=== PATIENT | male | born 1945 | race Hispanic/Latino ===

== ENCOUNTER 2021-07-27 11:50 | Inpatient (IN) | payer MEDICARE, BC ==
[~2021-07-27] VITALS: Ht 167.6 cm; Wt 99.9 kg
[2021-07-27] VITALS (11 sets, daily range): BP systolic 130–158; BP diastolic 69–84
[2021-07-27] MEDS ORDERED: DEXAMETHASONE SOD PHOS 10 MG/1 ML VIAL IV ONE (12:00)
[2021-07-27 12:06] LABS: BASOPHILS % 0.3 % (0.0-1.0); EOSINOPHILS # (AUTO) 0.1 (0.0-0.4); EOSINOPHILS % 0.4 % (0.0-6.0); HEMATOCRIT 45.9 % (38.2-49.6); HEMOGLOBIN 15.2 g/dL (14.0-18.0); LYMPHOCYTES % 7.2 % (18.0-39.1); MEAN CORPUSCULAR HEMOGLOBIN 30.7 pg (28-32); MEAN CORPUSCULAR HGB CONC 33.1 g/dL (31-35); MEAN CORPUSCULAR VOLUME 92.7 fL (81-99); MONOCYTES # (AUTO) 0.6 (0.2-0.8); MONOCYTES % 4.1 % (4.4-11.3); NEUTROPHILS # (AUTO) 11.9 (2.1-6.9); NEUTROPHILS % 86.9 % (38.7-80.0); PLATELET COUNT 219 x10e3/uL (140-360); RED BLOOD COUNT 4.95 x10e6/uL (4.3-5.7); RED CELL DISTRIBUTION WIDTH 12.2 % (11.7-14.4)
[2021-07-27 12:21] LABS: ALBUMIN 3.1 g/dL (3.5-5.0); ALBUMIN/GLOBULIN RATIO 0.7 (0.8-2.0); ANION GAP 22.6 mmol/L (8-16); CALCIUM 8.5 mg/dL (8.4-10.2); CREATININE, SERUM 1.15 mg/dL (0.72-1.25); POTASSIUM 3.6 mmol/L (3.5-5.1)
[2021-07-27] MEDS ORDERED: ENOXAPARIN SODIUM INJ 100 MG/ML SYR SC STA (12:39)
[2021-07-27] MEDS ORDERED: ACETAMINOPHEN 325 MG TAB PO ONE (12:45)
[2021-07-27] MEDS ORDERED: ACETAMINOPHEN 325 MG TAB ONE (12:46)
[2021-07-27] MEDS ORDERED: ETOMIDATE 2 MG/ML 10 ML INJ IV ONE (13:06)
[2021-07-27] MEDS ORDERED: NALOXONE HCL INJ 0.4 MG/ML AMP ONE (13:06)
[2021-07-27] MEDS ORDERED: VECURONIUM BROMIDE FOR INJ 20 MG VIAL ONE (13:06)
[2021-07-27] MEDS ORDERED: WATER STERILE 10 ML VIAL ONE (13:06)
[2021-07-27] MEDS ORDERED: IBUPROFEN 800MG/ 200ML 200 ML IV ONE (13:20)
[2021-07-27] MEDS ORDERED: OMEPRAZOLE40 MG PO (13:27)
[2021-07-27] MEDS ORDERED: AMLODIPINE BESY10 MG PO (13:27)
[2021-07-27] MEDS ORDERED: METOPROLOL TAR100 MG PO (13:27)
[2021-07-27] MEDS ORDERED: METFORMIN HCL1000 MG PO (13:27)
[2021-07-27] MEDS ORDERED: OLMESARTAN MEDO40 MG PO (13:27)
[2021-07-27] MEDS ORDERED: ATORVASTATIN CA40 MG PO (13:27)
[2021-07-27] MEDS ORDERED: DEXTROSE 50% SYRINGE 50 ML IV PRN (14:45)
[2021-07-27] MEDS: SODIUM CHLORIDE 0.9% 1000ML 1,000 ML IV SCH (15:48)
[2021-07-27] MEDS ORDERED: REMDESIVIR IV ONE (16:00)
[2021-07-27] MEDS ORDERED: SODIUM CHLORIDE 0.9% IV ONE (16:00)
[2021-07-27] MEDS: ASCORBIC ACID 500 MG TAB PO SCH (17:00)
[2021-07-27] MEDS: INSULIN REGULAR, HUMAN 100 UNIT/1 ML SQ SCH ×2 (17:35→21:16)
[2021-07-27] MEDS: CEFTRIAXONE 2 GM in SODIUM CHLORIDE 0.9% 100 ML IV SCH (19:01)
[2021-07-27] MEDS: ENOXAPARIN 30 MG/0.3 ML SYR SC SCH (21:14)
[2021-07-27] MEDS ORDERED: SODIUM CHLORIDE 0.9% 1000ML 500 ML IV SCH ×2 (23:00→23:05)
[2021-07-27] MEDS ORDERED: SODIUM CHLORIDE 0.9% 1000ML 500 ML IV ONE (23:15)
[2021-07-28] VITALS (15 sets, daily range): BP systolic 110–169; BP diastolic 69–87
[2021-07-28 00:15] LABS: ABG HCO3 21 mmol/L (22-26); ABG PCO2 29 mmHg (35-45); ABG PH 7.46 (7.35-7.45); ABG PO2 44 mmHg (80-105); ABG TCO2 22
[2021-07-28] MEDS: ACETAMINOPHEN 325 MG TAB PO PRN ×2 (02:45→07:56)
[2021-07-28] MEDS ORDERED: ACETAMINOPHEN 325 MG TAB ONE (02:46)
[2021-07-28] MEDS: DEXMEDETOMIDINE 400MCG/NS100ML 100 ML IV PRN ×2 (04:45→14:22)
[2021-07-28 05:09] LABS: ABG HCO3 21 mmol/L (22-26); ABG PCO2 28 mmHg (35-45); ABG PH 7.49 (7.35-7.45); ABG PO2 42 mmHg (80-105); ABG TCO2 22
[2021-07-28 05:59] LABS: BASOPHILS % 0.5 % (0.0-1.0); EOSINOPHILS % 0.2 % (0.0-6.0); HEMATOCRIT 42.9 % (38.2-49.6); HEMOGLOBIN 14.7 g/dL (14.0-18.0); LYMPHOCYTES # (AUTO) 0.5 (1.0-3.2); LYMPHOCYTES % 5.3 % (18.0-39.1); MEAN CORPUSCULAR HEMOGLOBIN 30.9 pg (28-32); MEAN CORPUSCULAR HGB CONC 34.3 g/dL (31-35); MEAN CORPUSCULAR VOLUME 90.3 fL (81-99); MONOCYTES # (AUTO) 0.2 (0.2-0.8); MONOCYTES % 2.3 % (4.4-11.3); NEUTROPHILS % 90.5 % (38.7-80.0); PLATELET COUNT 208 x10e3/uL (140-360); RED BLOOD COUNT 4.75 x10e6/uL (4.3-5.7); RED CELL DISTRIBUTION WIDTH 12.1 % (11.7-14.4)
[2021-07-28 06:13] LABS: ALBUMIN 2.4 g/dL (3.5-5.0); ALBUMIN/GLOBULIN RATIO 0.6 (0.8-2.0); ANION GAP 18.3 mmol/L (8-16); CREATININE, SERUM 0.76 mg/dL (0.72-1.25); POTASSIUM 3.3 mmol/L (3.5-5.1)
[2021-07-28] MEDS: INSULIN REGULAR, HUMAN 100 UNIT/1 ML SQ SCH ×4 (07:30→21:20)
[2021-07-28] MEDS: SODIUM CHLORIDE 0.9% 1000ML 1,000 ML IV SCH ×2 (07:56→18:12)
[2021-07-28] MEDS: ASCORBIC ACID 500 MG TAB PO SCH ×2 (09:00→18:10)
[2021-07-28] MEDS: ENOXAPARIN 30 MG/0.3 ML SYR SC SCH (09:00)
[2021-07-28] MEDS: ZINC SULFATE 50 MG CAP PO SCH (09:00)
[2021-07-28] MEDS: DEXAMETHASONE SOD PHOS 10 MG/1 ML VIAL IV SCH (09:00)
[2021-07-28] MEDS ORDERED: METOPROLOL TARTRATE INJ 1 MG/ML VIAL ONE (11:01)
[2021-07-28 11:12] LABS: MAGNESIUM 1.7 MG/DL (1.3-2.1); PHOSPHORUS 1.4 MG/DL (2.3-4.7)
[2021-07-28] MEDS: METOPROLOL TARTRATE 25 MG TAB PO SCH ×2 (11:59→18:10)
[2021-07-28] MEDS ORDERED: METOPROLOL TARTRATE INJ 1 MG/ML VIAL IV ONE (12:00)
[2021-07-28] MEDS: POTASSIUM CHLORIDE 20MEQ/100ML 100 ML IV PRN (12:08)
[2021-07-28 13:08] LABS: ABG PCO2 26 mmHg (35-45); ABG PH 7.46 (7.35-7.45)
[2021-07-28 13:09] LABS: ABG HCO3 19 mmol/L (22-26); ABG PO2 42 mmHg (80-105); ABG TCO2 19
[2021-07-28] MEDS: REMDESIVIR 100MG 100 MG in SODIUM CHLORIDE 0.9% 100 ML IV SCH (14:06)
[2021-07-28] MEDS ORDERED: LORAZEPAM INJ 2 MG/ML VIAL IV PRN (14:30)
[2021-07-28] MEDS ORDERED: LORAZEPAM INJ 2 MG/ML VIAL ONE (14:45)
[2021-07-28] MEDS ORDERED: LORAZEPAM INJ 2 MG/ML VIAL IV ONE (15:00)
[2021-07-28] MEDS: DIGOXIN 0.125 MG TAB PO SCH (15:15)
[2021-07-28] MEDS ORDERED: DIGOXIN INJ 0.25 MG/ML 2 ML AMP IV ONE (15:15)
[2021-07-28] MEDS ORDERED: DILTIAZEM HCL 5 MG/ML 5 ML VIAL IV ONE (15:15)
[2021-07-28] MEDS ORDERED: DEXMEDETOMIDINE 100 ML IV PRN (15:15)
[2021-07-28] MEDS ORDERED: DILTIAZEM HCL 30 MG TAB PO SCH (16:00)
[2021-07-28] MEDS ORDERED: ACETAMINOPHEN 1000 MG/100 ML IV STA (17:04)
[2021-07-28] MEDS: CEFTRIAXONE 2 GM in SODIUM CHLORIDE 0.9% 100 ML IV SCH (18:10)
[2021-07-28] MEDS ORDERED: METOPROLOL TARTRATE INJ 1 MG/ML VIAL IV PRN (19:15)
[2021-07-28] MEDS: CRESTOR 10MG PO SCH (21:00)
[2021-07-28] MEDS: ENOXAPARIN SODIUM INJ 100 MG/ML SYR SC SCH (21:19)
[2021-07-28] MEDS ORDERED: ACETAMINOPHEN 1000 MG/100 ML IV PRN (22:15)
[2021-07-28] MEDS ORDERED: ACETAMINOPHEN 1000 MG/100 ML 100 ML IV ONE (22:30)
[2021-07-28] MEDS ORDERED: DILTIAZEM HCL IV SOLN 125 MG in SODIUM CHLORIDE 0.9% 100 ML IV SCH (22:45)
[2021-07-28] MEDS ORDERED: DILTIAZEM HCL 125 ML IV SCH (22:45)
[2021-07-28] MEDS ORDERED: SODIUM CHLORIDE 0.9% 100 ML ONE (22:46)
[2021-07-28] MEDS ORDERED: DILTIAZEM HCL IV 5MG/ML 25 ML VIAL ONE (22:47)
[2021-07-29] VITALS (25 sets, daily range): BP systolic 70–136; BP diastolic 45–100
[2021-07-29 05:56] LABS: BASOPHILS % 0.3 % (0.0-1.0); HEMOGLOBIN 14.1 g/dL (14.0-18.0); LYMPHOCYTES # (AUTO) 0.7 (1.0-3.2); MEAN CORPUSCULAR HEMOGLOBIN 30.6 pg (28-32); MEAN CORPUSCULAR HGB CONC 33.6 g/dL (31-35); MEAN CORPUSCULAR VOLUME 91.1 fL (81-99); MONOCYTES # (AUTO) 0.4 (0.2-0.8); MONOCYTES % 3.8 % (4.4-11.3); NEUTROPHILS # (AUTO) 8.4 (2.1-6.9); NEUTROPHILS % 86.7 % (38.7-80.0); PLATELET COUNT 230 x10e3/uL (140-360); RED BLOOD COUNT 4.61 x10e6/uL (4.3-5.7); RED CELL DISTRIBUTION WIDTH 12.6 % (11.7-14.4)
[2021-07-29 06:34] LABS: ALBUMIN 1.9 g/dL (3.5-5.0); ALBUMIN/GLOBULIN RATIO 0.5 (0.8-2.0); ANION GAP 13.5 mmol/L (8-16); CALCIUM 8.1 mg/dL (8.4-10.2); CREATININE, SERUM 0.81 mg/dL (0.72-1.25); POTASSIUM 3.5 mmol/L (3.5-5.1)
[2021-07-29] MEDS: DEXAMETHASONE SOD PHOS 10 MG/1 ML VIAL IV SCH (07:56)
[2021-07-29] MEDS: INSULIN REGULAR, HUMAN 100 UNIT/1 ML SQ SCH ×4 (07:56→20:57)
[2021-07-29] MEDS: ENOXAPARIN SODIUM INJ 100 MG/ML SYR SC SCH ×2 (07:56→20:55)
[2021-07-29] MEDS: METOPROLOL TARTRATE 25 MG TAB PO SCH (09:00)
[2021-07-29] MEDS ORDERED: NOREPINEPHRINE 8 MG/D5W 250 ML 250 ML IV PRN (09:45)
[2021-07-29] MEDS: PROPOFOL IV EMULSION 10MG/ML 100 ML IV SCH ×2 (10:40→19:55)
[2021-07-29] MEDS: FENTANYL 2000MCG/NS 250 250 ML IV SCH (10:41)
[2021-07-29] MEDS ORDERED: VASOPRESSIN 60 UNIT in DEXTROSE 5% 50ML 57 ML IV PRN (10:45)
[2021-07-29] MEDS ORDERED: PHENYLEPHRINE HCL IN 0.9% NACL 250 ML IV ONE (10:56)
[2021-07-29 11:48] LABS: ABG HCO3 18 mmol/L (22-26); ABG PCO2 28 mmHg (35-45); ABG PH 7.41 (7.35-7.45); ABG PO2 64 mmHg (80-105); ABG TCO2 19
[2021-07-29] MEDS ORDERED: AMIODARONE 900MG 500 ML IV ONE (12:00)
[2021-07-29] MEDS: DIGOXIN 0.125 MG TAB PO SCH (12:39)
[2021-07-29] MEDS: BARICITINIB 2 MG TABLET PO SCH (12:39)
[2021-07-29] MEDS: ZINC SULFATE 50 MG CAP PO SCH (12:39)
[2021-07-29] MEDS: ASCORBIC ACID 500 MG TAB PO SCH ×2 (12:39→18:05)
[2021-07-29 15:04] LABS: ABG PCO2 37 mmHg (35-45); ABG PH 7.37 (7.35-7.45); ABG PO2 64 mmHg (80-105)
[2021-07-29 15:05] LABS: ABG HCO3 21 mmol/L (22-26); ABG TCO2 22
[2021-07-29] MEDS: REMDESIVIR 100MG 100 MG in SODIUM CHLORIDE 0.9% 100 ML IV SCH (18:04)
[2021-07-29] MEDS: CEFTRIAXONE 2 GM in SODIUM CHLORIDE 0.9% 100 ML IV SCH (18:04)
[2021-07-29] MEDS ORDERED: AMIODARONE 900MG 500 ML IV SCH (18:30)
[2021-07-29] MEDS: CRESTOR 10MG PO SCH (20:55)
[2021-07-30] VITALS (18 sets, daily range): BP systolic 78–136; BP diastolic 57–87
[2021-07-30] MEDS: PROPOFOL IV EMULSION 10MG/ML 100 ML IV SCH ×2 (03:25→12:00)
[2021-07-30] MEDS: MIDAZOLAM HCL 5MG/ML 10ML VIAL 100 ML IV PRN ×3 (03:31→21:45)
[2021-07-30] MEDS: FENTANYL 2000MCG/NS 250 250 ML IV SCH ×2 (05:24→21:30)
[2021-07-30 05:48] LABS: BASOPHILS # (AUTO) 0.1 (0.0-0.1); BASOPHILS % 0.6 % (0.0-1.0); HEMATOCRIT 43.1 % (38.2-49.6); HEMOGLOBIN 14.8 g/dL (14.0-18.0); LYMPHOCYTES # (AUTO) 1.4 (1.0-3.2); LYMPHOCYTES % 9.1 % (18.0-39.1); MEAN CORPUSCULAR HEMOGLOBIN 30.8 pg (28-32); MEAN CORPUSCULAR HGB CONC 34.3 g/dL (31-35); MEAN CORPUSCULAR VOLUME 89.6 fL (81-99); MONOCYTES # (AUTO) 0.7 (0.2-0.8); MONOCYTES % 4.2 % (4.4-11.3); NEUTROPHILS # (AUTO) 12.9 (2.1-6.9); NEUTROPHILS % 81.9 % (38.7-80.0); PLATELET COUNT 296 x10e3/uL (140-360); RED BLOOD COUNT 4.81 x10e6/uL (4.3-5.7); RED CELL DISTRIBUTION WIDTH 12.9 % (11.7-14.4)
[2021-07-30] MEDS: ACETAMINOPHEN 325 MG TAB PO PRN (06:00)
[2021-07-30 06:10] LABS: ALBUMIN 1.7 g/dL (3.5-5.0); ALBUMIN/GLOBULIN RATIO 0.5 (0.8-2.0); ANION GAP 14.4 mmol/L (8-16); CALCIUM 7.1 mg/dL (8.4-10.2); CREATININE, SERUM 0.9 mg/dL (0.72-1.25); POTASSIUM 3.4 mmol/L (3.5-5.1)
[2021-07-30] MEDS: PHENYLEPHRINE 10MG/ML VIAL 40 MG in DEXTROSE 5% 250ML 246 ML IV PRN (06:22)
[2021-07-30] MEDS: POTASSIUM CHLORIDE 20MEQ/100ML 100 ML IV PRN (06:35)
[2021-07-30 07:41] LABS: ABG HCO3 22 mmol/L (22-26); ABG PCO2 33 mmHg (35-45); ABG PH 7.43 (7.35-7.45); ABG PO2 61 mmHg (80-105); ABG TCO2 23
[2021-07-30] MEDS: INSULIN REGULAR, HUMAN 100 UNIT/1 ML SQ SCH ×4 (08:06→21:30)
[2021-07-30] MEDS: DEXAMETHASONE SOD PHOS 10 MG/1 ML VIAL IV SCH (08:44)
[2021-07-30] MEDS: ZINC SULFATE 50 MG CAP PO SCH (08:45)
[2021-07-30] MEDS: BARICITINIB 2 MG TABLET PO SCH (08:45)
[2021-07-30] MEDS: DIGOXIN 0.125 MG TAB PO SCH (08:45)
[2021-07-30] MEDS: ASCORBIC ACID 500 MG TAB PO SCH ×2 (08:45→17:48)
[2021-07-30] MEDS: ENOXAPARIN SODIUM INJ 100 MG/ML SYR SC SCH ×2 (08:45→21:30)
[2021-07-30] MEDS: PIPERACILLIN/TAZOBACTAM 2.25 GM in SODIUM CHLORIDE 0.9% 50ML 50 ML IV SCH ×2 (08:46→17:49)
[2021-07-30 08:54] LABS: LYMPHOCYTES % (MANUAL) 6 % (19-48); MONOCYTES % (MANUAL) 1 % (3.4-9.0); NEUTROPHILS % (MANUAL) 93 % (40-74); PLATELET ESTIMATE ADEQUATE; PLATELET MORPHOLOGY COMMENT FEW LARGE; RBC MORPHOLOGY COMMENT NORMAL
[2021-07-30] MEDS: REMDESIVIR 100MG 100 MG in SODIUM CHLORIDE 0.9% 100 ML IV SCH (15:53)
[2021-07-30] MEDS: CRESTOR 10MG PO SCH (21:00)
[2021-07-31] VITALS (14 sets, daily range): BP systolic 88–117; BP diastolic 53–67
[2021-07-31] MEDS: PIPERACILLIN/TAZOBACTAM 2.25 GM in SODIUM CHLORIDE 0.9% 50ML 50 ML IV SCH ×4 (00:30→17:41)
[2021-07-31] MEDS: MIDAZOLAM HCL 5MG/ML 10ML VIAL 100 ML IV PRN ×4 (02:28→23:00)
[2021-07-31] MEDS: FENTANYL 2000MCG/NS 250 250 ML IV SCH ×3 (03:36→22:00)
[2021-07-31] MEDS: PROPOFOL IV EMULSION 10MG/ML 100 ML IV SCH ×2 (04:00→21:00)
[2021-07-31 06:42] LABS: HEMATOCRIT 43.4 % (38.2-49.6); HEMOGLOBIN 13.9 g/dL (14.0-18.0); LYMPHOCYTES # (AUTO) 1.7 (1.0-3.2); LYMPHOCYTES % 8.3 % (18.0-39.1); MEAN CORPUSCULAR VOLUME 96.9 fL (81-99); MONOCYTES # (AUTO) 0.9 (0.2-0.8); MONOCYTES % 4.3 % (4.4-11.3); NEUTROPHILS # (AUTO) 16.6 (2.1-6.9); NEUTROPHILS % 80.2 % (38.7-80.0); PLATELET COUNT 309 x10e3/uL (140-360); RED BLOOD COUNT 4.48 x10e6/uL (4.3-5.7); RED CELL DISTRIBUTION WIDTH 13.6 % (11.7-14.4)
[2021-07-31 06:54] LABS: ALBUMIN 1.7 g/dL (3.5-5.0); ALBUMIN/GLOBULIN RATIO 0.4 (0.8-2.0); ANION GAP 15.5 mmol/L (8-16); CALCIUM 7.9 mg/dL (8.4-10.2); CREATININE, SERUM 1.07 mg/dL (0.72-1.25); POTASSIUM 4.5 mmol/L (3.5-5.1)
[2021-07-31] MEDS: INSULIN REGULAR, HUMAN 100 UNIT/1 ML SQ SCH (07:32)
[2021-07-31] MEDS: DEXAMETHASONE SOD PHOS 10 MG/1 ML VIAL IV SCH (07:38)
[2021-07-31] MEDS: ZINC SULFATE 50 MG CAP PO SCH (07:54)
[2021-07-31] MEDS: ENOXAPARIN SODIUM INJ 100 MG/ML SYR SC SCH ×2 (07:54→21:03)
[2021-07-31] MEDS: ASCORBIC ACID 500 MG TAB PO SCH ×2 (07:54→17:41)
[2021-07-31] MEDS: BARICITINIB 2 MG TABLET PO SCH (07:54)
[2021-07-31] MEDS ORDERED: DEXTROSE 50% SYRINGE 50 ML IV PRN (10:15)
[2021-07-31] MEDS ORDERED: INSULIN GLARGINE 100 UNITS/ML VIAL SQ NR (10:15)
[2021-07-31 11:21] LABS: ABG HCO3 25 mmol/L (22-26); ABG PCO2 44 mmHg (35-45); ABG PH 7.37 (7.35-7.45); ABG PO2 63 mmHg (80-105); ABG TCO2 26
[2021-07-31] MEDS: INSULIN LISPRO 100 UNIT/1 ML 3ML VIAL SQ SCH ×3 (12:33→21:00)
[2021-07-31] MEDS: REMDESIVIR 100MG 100 MG in SODIUM CHLORIDE 0.9% 100 ML IV SCH (15:38)
[2021-07-31] MEDS ORDERED: INSULIN GLARGINE 100 UNITS/ML VIAL SQ SCH (21:00)
[2021-07-31] MEDS: CRESTOR 10MG PO SCH (21:03)
[2021-08-01] VITALS (24 sets, daily range): BP systolic 86–112; BP diastolic 52–63
[2021-08-01] MEDS: PIPERACILLIN/TAZOBACTAM 2.25 GM in SODIUM CHLORIDE 0.9% 50ML 50 ML IV SCH ×5 (00:30→23:07)
[2021-08-01] MEDS: PROPOFOL IV EMULSION 10MG/ML 100 ML IV SCH ×4 (01:08→21:35)
[2021-08-01] MEDS: MIDAZOLAM HCL 5MG/ML 10ML VIAL 100 ML IV PRN ×4 (04:00→23:47)
[2021-08-01 06:49] LABS: ALBUMIN 1.7 g/dL (3.5-5.0); ALBUMIN/GLOBULIN RATIO 0.4 (0.8-2.0); ANION GAP 14.4 mmol/L (8-16); CALCIUM 7.8 mg/dL (8.4-10.2); CREATININE, SERUM 1.15 mg/dL (0.72-1.25); POTASSIUM 5.4 mmol/L (3.5-5.1)
[2021-08-01] MEDS: BARICITINIB 2 MG TABLET PO SCH (09:16)
[2021-08-01] MEDS: DEXAMETHASONE SOD PHOS 10 MG/1 ML VIAL IV SCH (09:16)
[2021-08-01] MEDS: ENOXAPARIN SODIUM INJ 100 MG/ML SYR SC SCH ×2 (09:16→20:30)
[2021-08-01] MEDS: ZINC SULFATE 50 MG CAP PO SCH (09:16)
[2021-08-01] MEDS: ASCORBIC ACID 500 MG TAB PO SCH ×2 (09:16→16:49)
[2021-08-01] MEDS: INSULIN LISPRO 100 UNIT/1 ML 3ML VIAL SQ SCH ×4 (09:16→20:11)
[2021-08-01] MEDS: FENTANYL 2000MCG/NS 250 250 ML IV SCH (09:17)
[2021-08-01 09:25] LABS: HEMATOCRIT 41.7 % (38.2-49.6); HEMOGLOBIN 13.5 g/dL (14.0-18.0); LYMPHOCYTES # (AUTO) 1.1 (1.0-3.2); LYMPHOCYTES % 5.2 % (18.0-39.1); MEAN CORPUSCULAR HEMOGLOBIN 31.3 pg (28-32); MEAN CORPUSCULAR HGB CONC 32.4 g/dL (31-35); MEAN CORPUSCULAR VOLUME 96.5 fL (81-99); MONOCYTES % 4.8 % (4.4-11.3); NEUTROPHILS # (AUTO) 16.6 (2.1-6.9); NEUTROPHILS % 79.3 % (38.7-80.0); PLATELET COUNT 346 x10e3/uL (140-360); RED BLOOD COUNT 4.32 x10e6/uL (4.3-5.7); RED CELL DISTRIBUTION WIDTH 13.9 % (11.7-14.4)
[2021-08-01] MEDS ORDERED: SOD POLYSTYRENE SULFONATE SUSP 15 GM/60 ML BTL PO PRN (09:45)
[2021-08-01] MEDS ORDERED: INSULIN GLARGINE 100 UNITS/ML VIAL SQ SCH (09:45)
[2021-08-01] MEDS ORDERED: LACTULOSE SYRUP 20 GM/30 ML UDC PO PRN (09:45)
[2021-08-01 11:03] LABS: ABG PCO2 52 mmHg (35-45); ABG PH 7.35 (7.35-7.45)
[2021-08-01 11:04] LABS: ABG HCO3 29 mmol/L (22-26); ABG PO2 105 mmHg (80-105); ABG TCO2 30
[2021-08-01] MEDS: FUROSEMIDE INJ 10 MG/ML 2 ML VIAL IV SCH (13:02)
[2021-08-01 14:20] LABS: CLARITY,URINE CLOUDY (CLEAR); COLOR,URINE YELLOW (YELLOW); KETONES,URINE NEGATIVE (NEGATIVE); LEUKOCYTE ESTERASE ,URINE 1+ (NEGATIVE); NITRITE,URINE NEGATIVE (NEGATIVE); PROTEIN,URINE DIPSTICK NEGATIVE (NEGATIVE); URINE UROBILINOGEN 0.2 mg/dL (0.2 - 1)
[2021-08-01 14:30] LABS: BACTERIA,URINE MANY /HPF; EPITHELIAL CELLS,URINE FEW /LPF; RENAL EPITHELIAL CELLS,URINE FEW; TRANSITIONAL EPI CELLS,URINE FEW; WBC,URINE (MAN) >50 /HPF (0-5)
[2021-08-01 14:37] LABS: CREATININE,URINE RANDOM 28.58 mg/dL (63-166); TOTAL PROTEIN, URINE 8.1 mg/dL (1-14)
[2021-08-01] MEDS: PHENYLEPHRINE 10MG/ML VIAL 40 MG in DEXTROSE 5% 250ML 246 ML IV PRN (15:29)
[2021-08-01 15:52] LABS: ABG HCO3 30 mmol/L (22-26); ABG PCO2 56 mmHg (35-45); ABG PH 7.34 (7.35-7.45); ABG PO2 80 mmHg (80-105); ABG TCO2 31
[2021-08-01] MEDS ORDERED: CALCIUM GLUCONATE 10% INJ 4.65 MEQ in SODIUM CHLORIDE 0.9% 50ML 50 ML IV ONE (17:45)
[2021-08-01] MEDS: INSULIN GLARGINE 100 UNITS/ML VIAL SQ SCH (20:20)
[2021-08-01] MEDS: CRESTOR 10MG PO SCH (20:30)
[2021-08-01] MEDS ORDERED: INSULIN REGULAR IN 0.9 % NACL 100 ML IV ONE (22:11)
[2021-08-02] VITALS (24 sets, daily range): BP systolic 81–132; BP diastolic 50–80
[2021-08-02] MEDS: PROPOFOL IV EMULSION 10MG/ML 100 ML IV SCH ×4 (01:40→22:51)
[2021-08-02] MEDS: FENTANYL 2000MCG/NS 250 250 ML IV SCH ×2 (02:57→19:07)
[2021-08-02] MEDS: MIDAZOLAM HCL 5MG/ML 10ML VIAL 100 ML IV PRN ×3 (04:56→19:08)
[2021-08-02] MEDS: PIPERACILLIN/TAZOBACTAM 2.25 GM in SODIUM CHLORIDE 0.9% 50ML 50 ML IV SCH ×3 (05:15→18:52)
[2021-08-02 05:37] LABS: BASOPHILS # (AUTO) 0.1 (0.0-0.1); BASOPHILS % 0.6 % (0.0-1.0); EOSINOPHILS % 0.2 % (0.0-6.0); HEMATOCRIT 42.3 % (38.2-49.6); HEMOGLOBIN 13.6 g/dL (14.0-18.0); LYMPHOCYTES # (AUTO) 0.9 (1.0-3.2); LYMPHOCYTES % 4.4 % (18.0-39.1); MEAN CORPUSCULAR HEMOGLOBIN 31.3 pg (28-32); MEAN CORPUSCULAR HGB CONC 32.2 g/dL (31-35); MEAN CORPUSCULAR VOLUME 97.5 fL (81-99); MONOCYTES # (AUTO) 0.6 (0.2-0.8); NEUTROPHILS # (AUTO) 16.6 (2.1-6.9); NEUTROPHILS % 82.1 % (38.7-80.0); PLATELET COUNT 340 x10e3/uL (140-360); RED BLOOD COUNT 4.34 x10e6/uL (4.3-5.7); RED CELL DISTRIBUTION WIDTH 14.1 % (11.7-14.4)
[2021-08-02 06:11] LABS: MAGNESIUM 2.9 MG/DL (1.3-2.1); PHOSPHORUS 3.5 MG/DL (2.3-4.7)
[2021-08-02 06:13] LABS: ALBUMIN 1.7 g/dL (3.5-5.0); ALBUMIN/GLOBULIN RATIO 0.4 (0.8-2.0); ANION GAP 13.8 mmol/L (8-16); CREATININE, SERUM 1.03 mg/dL (0.72-1.25); POTASSIUM 4.8 mmol/L (3.5-5.1)
[2021-08-02 07:08] LABS: CALCIUM IONIZED 1.1 mmol/L (1.09-1.30)
[2021-08-02 08:16] LABS: ABG HCO3 34 mmol/L (22-26); ABG PCO2 70 mmHg (35-45); ABG PO2 41 mmHg (80-105); ABG TCO2 36
[2021-08-02] MEDS: ZINC SULFATE 50 MG CAP PO SCH (09:19)
[2021-08-02] MEDS: DEXAMETHASONE SOD PHOS 10 MG/1 ML VIAL IV SCH (09:19)
[2021-08-02] MEDS: BARICITINIB 2 MG TABLET PO SCH (09:19)
[2021-08-02] MEDS: INSULIN LISPRO 100 UNIT/1 ML 3ML VIAL SQ SCH ×4 (09:19→20:34)
[2021-08-02] MEDS: ENOXAPARIN SODIUM INJ 100 MG/ML SYR SC SCH (09:19)
[2021-08-02] MEDS: FUROSEMIDE INJ 10 MG/ML 2 ML VIAL IV SCH ×2 (09:19→18:52)
[2021-08-02] MEDS: ASCORBIC ACID 500 MG TAB PO SCH ×2 (09:19→18:52)
[2021-08-02] MEDS ORDERED: SODIUM CHLORIDE 0.9% 1000ML 1,000 ML ONE (13:57)
[2021-08-02 16:24] LABS: ABG PCO2 51 mmHg (35-45)
[2021-08-02 16:25] LABS: ABG HCO3 32 mmol/L (22-26); ABG PO2 66 mmHg (80-105)
[2021-08-02 16:26] LABS: ABG TCO2 33
[2021-08-02] MEDS: ENOXAPARIN SOD INJ 40 MG/0.4 ML SYR SC SCH (18:52)
[2021-08-02] MEDS: CRESTOR 10MG PO SCH (20:33)
[2021-08-02] MEDS: INSULIN GLARGINE 100 UNITS/ML VIAL SQ SCH (20:34)
[2021-08-03] VITALS (25 sets, daily range): BP systolic 92–123; BP diastolic 43–70
[2021-08-03] MEDS: PIPERACILLIN/TAZOBACTAM 2.25 GM in SODIUM CHLORIDE 0.9% 50ML 50 ML IV SCH ×2 (00:03→05:44)
[2021-08-03] MEDS: MIDAZOLAM HCL 5MG/ML 10ML VIAL 100 ML IV PRN ×5 (00:35→21:00)
[2021-08-03] MEDS: PROPOFOL IV EMULSION 10MG/ML 100 ML IV SCH ×3 (03:00→23:01)
[2021-08-03] MEDS: ROCURONIUM 1250MG/NS 250 250 ML IV PRN (04:54)
[2021-08-03] MEDS: FENTANYL 2000MCG/NS 250 250 ML IV SCH ×2 (06:04→20:00)
[2021-08-03 06:22] LABS: BASOPHILS # (AUTO) 0.2 (0.0-0.1); BASOPHILS % 0.6 % (0.0-1.0); EOSINOPHILS # (AUTO) 0.2 (0.0-0.4); EOSINOPHILS % 0.9 % (0.0-6.0); HEMOGLOBIN 13.1 g/dL (14.0-18.0); LYMPHOCYTES % 4.1 % (18.0-39.1); MEAN CORPUSCULAR HEMOGLOBIN 31.1 pg (28-32); MEAN CORPUSCULAR HGB CONC 31.2 g/dL (31-35); MEAN CORPUSCULAR VOLUME 99.8 fL (81-99); MONOCYTES # (AUTO) 0.5 (0.2-0.8); MONOCYTES % 2.2 % (4.4-11.3); NEUTROPHILS # (AUTO) 19.5 (2.1-6.9); NEUTROPHILS % 83.9 % (38.7-80.0); PLATELET COUNT 380 x10e3/uL (140-360); RED BLOOD COUNT 4.21 x10e6/uL (4.3-5.7); RED CELL DISTRIBUTION WIDTH 13.9 % (11.7-14.4)
[2021-08-03 07:28] LABS: CALCIUM IONIZED 1.1 mmol/L (1.09-1.30)
[2021-08-03 07:53] LABS: ALBUMIN 1.4 g/dL (3.5-5.0); ALBUMIN/GLOBULIN RATIO 0.4 (0.8-2.0); ANION GAP 12.6 mmol/L (8-16); CALCIUM 7.6 mg/dL (8.4-10.2); CREATININE, SERUM 0.86 mg/dL (0.72-1.25); MAGNESIUM 2.3 MG/DL (1.3-2.1); POTASSIUM 4.6 mmol/L (3.5-5.1)
[2021-08-03] MEDS: INSULIN LISPRO 100 UNIT/1 ML 3ML VIAL SQ SCH ×4 (08:08→20:45)
[2021-08-03 08:45] LABS: ABG HCO3 35 mmol/L (22-26); ABG PCO2 61 mmHg (35-45); ABG PH 7.37 (7.35-7.45); ABG PO2 44 mmHg (80-105); ABG TCO2 37
[2021-08-03] MEDS: BARICITINIB 2 MG TABLET PO SCH (09:00)
[2021-08-03] MEDS: FUROSEMIDE INJ 10 MG/ML 2 ML VIAL IV SCH ×2 (09:00)
[2021-08-03] MEDS: DEXAMETHASONE SOD PHOS 10 MG/1 ML VIAL IV SCH (09:00)
[2021-08-03] MEDS: ZINC SULFATE 50 MG CAP PO SCH (09:00)
[2021-08-03] MEDS: ASCORBIC ACID 500 MG TAB PO SCH ×2 (09:00→17:46)
[2021-08-03 09:49] LABS: BAND NEUTROPHILS % (MANUAL) 4 %; EOSINOPHILS % (MANUAL) 2 % (0-7); LYMPHOCYTES % (MANUAL) 6 % (19-48); METAMYELOCYTES % (MANUAL) 1 % (0-0); MONOCYTES % (MANUAL) 3 % (3.4-9.0); MYELOCYTES % (MANUAL) 4 % (0-0); NEUTROPHILS % (MANUAL) 80 % (40-74); PLATELET ESTIMATE ADEQUATE; PLATELET MORPHOLOGY COMMENT NORMAL; RBC MORPHOLOGY COMMENT NORMAL
[2021-08-03] MEDS: INSULIN GLARGINE 100 UNITS/ML VIAL SQ SCH ×2 (10:15→21:04)
[2021-08-03] MEDS: PHENYLEPHRINE 10MG/ML VIAL 40 MG in DEXTROSE 5% 250ML 246 ML IV PRN ×2 (12:59→23:02)
[2021-08-03] MEDS ORDERED: FUROSEMIDE INJ 10 MG/ML 2 ML VIAL IV NR (13:15)
[2021-08-03] MEDS: Vancomycin IV 1 GM in SODIUM CHLORIDE 0.9% 250ML 250 ML IV SCH (14:17)
[2021-08-03] MEDS: ACETAMINOPHEN 325 MG TAB PO PRN (16:20)
[2021-08-03] MEDS: ENOXAPARIN SOD INJ 40 MG/0.4 ML SYR SC SCH (17:46)
[2021-08-03] MEDS ORDERED: FUROSEMIDE INJ 10 MG/ML 4 ML VIAL ONE (18:00)
[2021-08-03] MEDS: CRESTOR 10MG PO SCH (20:44)
[2021-08-04] VITALS (25 sets, daily range): BP systolic 93–137; BP diastolic 48–86
[2021-08-04] MEDS: Vancomycin IV 1 GM in SODIUM CHLORIDE 0.9% 250ML 250 ML IV SCH ×2 (00:15→11:48)
[2021-08-04] MEDS: ROCURONIUM 1250MG/NS 250 250 ML IV PRN ×2 (01:42→23:47)
[2021-08-04] MEDS: MIDAZOLAM HCL 5MG/ML 10ML VIAL 100 ML IV PRN ×4 (01:43→21:14)
[2021-08-04] MEDS: PROPOFOL IV EMULSION 10MG/ML 100 ML IV SCH ×2 (03:00→15:53)
[2021-08-04 07:17] LABS: BASOPHILS # (AUTO) 0.2 (0.0-0.1); BASOPHILS % 0.6 % (0.0-1.0); EOSINOPHILS # (AUTO) 0.3 (0.0-0.4); HEMATOCRIT 43.2 % (38.2-49.6); HEMOGLOBIN 13.4 g/dL (14.0-18.0); LYMPHOCYTES # (AUTO) 1.1 (1.0-3.2); LYMPHOCYTES % 4.3 % (18.0-39.1); MEAN CORPUSCULAR HEMOGLOBIN 30.9 pg (28-32); MEAN CORPUSCULAR VOLUME 99.5 fL (81-99); MONOCYTES # (AUTO) 0.5 (0.2-0.8); MONOCYTES % 1.9 % (4.4-11.3); NEUTROPHILS # (AUTO) 21.9 (2.1-6.9); NEUTROPHILS % 85.9 % (38.7-80.0); PLATELET COUNT 354 x10e3/uL (140-360); RED BLOOD COUNT 4.34 x10e6/uL (4.3-5.7); RED CELL DISTRIBUTION WIDTH 13.7 % (11.7-14.4)
[2021-08-04 07:19] LABS: CALCIUM IONIZED 1.1 mmol/L (1.09-1.30)
[2021-08-04 07:40] LABS: MAGNESIUM 2.3 MG/DL (1.3-2.1)
[2021-08-04 07:51] LABS: ALBUMIN 1.4 g/dL (3.5-5.0); ALBUMIN/GLOBULIN RATIO 0.4 (0.8-2.0); ANION GAP 12.8 mmol/L (8-16); CALCIUM 7.5 mg/dL (8.4-10.2); CREATININE, SERUM 0.86 mg/dL (0.72-1.25); POTASSIUM 4.8 mmol/L (3.5-5.1)
[2021-08-04 08:07] LABS: BAND NEUTROPHILS % (MANUAL) 1 %; LYMPHOCYTES % (MANUAL) 6 % (19-48); MONOCYTES % (MANUAL) 1 % (3.4-9.0); MYELOCYTES % (MANUAL) 1 % (0-0); NEUTROPHILS % (MANUAL) 91 % (40-74); PLATELET ESTIMATE ADEQUATE; PLATELET MORPHOLOGY COMMENT NORMAL
[2021-08-04 08:08] LABS: RBC MORPHOLOGY COMMENT NORMAL
[2021-08-04] MEDS: DEXAMETHASONE SOD PHOS 10 MG/1 ML VIAL IV SCH (08:09)
[2021-08-04] MEDS: ASCORBIC ACID 500 MG TAB PO SCH ×2 (08:09→16:09)
[2021-08-04] MEDS: ZINC SULFATE 50 MG CAP PO SCH (08:09)
[2021-08-04] MEDS: BARICITINIB 2 MG TABLET PO SCH (08:09)
[2021-08-04] MEDS: FUROSEMIDE INJ 10 MG/ML 2 ML VIAL IV SCH ×2 (08:09→16:09)
[2021-08-04 08:10] LABS: ABG HCO3 33 mmol/L (22-26); ABG PCO2 54 mmHg (35-45); ABG PH 7.39 (7.35-7.45); ABG PO2 147 mmHg (80-105); ABG TCO2 35
[2021-08-04] MEDS: INSULIN LISPRO 100 UNIT/1 ML 3ML VIAL SQ SCH ×4 (08:24→20:49)
[2021-08-04] MEDS: INSULIN GLARGINE 100 UNITS/ML VIAL SQ SCH ×2 (08:24→20:49)
[2021-08-04 10:59] LABS: ABG HCO3 33 mmol/L (22-26); ABG PCO2 59 mmHg (35-45); ABG PH 7.36 (7.35-7.45); ABG PO2 101 mmHg (80-105); ABG TCO2 35
[2021-08-04 14:06] LABS: ABG HCO3 34 mmol/L (22-26); ABG PCO2 56 mmHg (35-45); ABG PH 7.39 (7.35-7.45); ABG PO2 81 mmHg (80-105); ABG TCO2 35
[2021-08-04] MEDS: FENTANYL 2000MCG/NS 250 250 ML IV SCH ×2 (15:50→23:48)
[2021-08-04] MEDS: METRONIDAZOLE 500MG/NS 100ML 100 ML IV SCH ×2 (15:54→20:53)
[2021-08-04] MEDS: CEFEPIME 1 GM in SODIUM CHLORIDE 0.9% 50ML 50 ML IV SCH ×2 (16:09→20:53)
[2021-08-04] MEDS: ENOXAPARIN SOD INJ 40 MG/0.4 ML SYR SC SCH (16:09)
[2021-08-04] MEDS: CRESTOR 10MG PO SCH (20:53)
[2021-08-05] VITALS (25 sets, daily range): BP systolic 83–125; BP diastolic 48–81
[2021-08-05] MEDS: PROPOFOL IV EMULSION 10MG/ML 100 ML IV SCH ×3 (02:00→19:50)
[2021-08-05] MEDS: MIDAZOLAM HCL 5MG/ML 10ML VIAL 100 ML IV PRN ×5 (02:21→23:28)
[2021-08-05] MEDS: CEFEPIME 1 GM in SODIUM CHLORIDE 0.9% 50ML 50 ML IV SCH ×3 (05:37→21:28)
[2021-08-05] MEDS: METRONIDAZOLE 500MG/NS 100ML 100 ML IV SCH ×3 (05:37→21:28)
[2021-08-05] MEDS ORDERED: VASOPRESSIN 60 UNIT in DEXTROSE 5% 50ML 57 ML IV PRN (05:45)
[2021-08-05 06:02] LABS: CALCIUM IONIZED 1.1 mmol/L (1.09-1.30)
[2021-08-05 06:08] LABS: INR 1.06; PROTHROMBIN TIME 14.7 seconds (11.9-14.5)
[2021-08-05 06:09] LABS: PARTIAL THROMBOPLASTIN TIME 29.6 seconds (23.8-35.5)
[2021-08-05 06:22] LABS: ANION GAP 15.6 mmol/L (8-16); CALCIUM 7.7 mg/dL (8.4-10.2); CREATININE, SERUM 0.84 mg/dL (0.72-1.25); MAGNESIUM 2.8 MG/DL (1.3-2.1); POTASSIUM 4.6 mmol/L (3.5-5.1)
[2021-08-05] MEDS: FENTANYL 2000MCG/NS 250 250 ML IV SCH ×3 (06:25→19:51)
[2021-08-05 06:53] LABS: BASOPHILS % 0.1 % (0.0-1.0); EOSINOPHILS # (AUTO) 0.3 (0.0-0.4); EOSINOPHILS % 0.8 % (0.0-6.0); HEMATOCRIT 47.7 % (38.2-49.6); HEMOGLOBIN 14.7 g/dL (14.0-18.0); LYMPHOCYTES # (AUTO) 1.4 (1.0-3.2); LYMPHOCYTES % 4.2 % (18.0-39.1); MEAN CORPUSCULAR HEMOGLOBIN 31.2 pg (28-32); MEAN CORPUSCULAR HGB CONC 30.8 g/dL (31-35); MEAN CORPUSCULAR VOLUME 101.3 fL (81-99); MONOCYTES # (AUTO) 0.8 (0.2-0.8); MONOCYTES % 2.4 % (4.4-11.3); NEUTROPHILS # (AUTO) 30.1 (2.1-6.9); NEUTROPHILS % 88.9 % (38.7-80.0); PLATELET COUNT 364 x10e3/uL (140-360); RED BLOOD COUNT 4.71 x10e6/uL (4.3-5.7); RED CELL DISTRIBUTION WIDTH 13.2 % (11.7-14.4)
[2021-08-05] MEDS: PHENYLEPHRINE 10MG/ML VIAL 40 MG in DEXTROSE 5% 250ML 246 ML IV PRN (07:59)
[2021-08-05] MEDS ORDERED: ALBUMIN 25% 25GM 100ML 0.25 GM/ML BTL IV ONE (08:00)
[2021-08-05 08:08] LABS: PHOSPHORUS 4.2 MG/DL (2.3-4.7)
[2021-08-05] MEDS: INSULIN LISPRO 100 UNIT/1 ML 3ML VIAL SQ SCH ×4 (08:55→20:46)
[2021-08-05 09:03] LABS: ANISOCYTOSIS MODERATE; BAND NEUTROPHILS % (MANUAL) 3 %; EOSINOPHILS % (MANUAL) 2 % (0-7); LYMPHOCYTES % (MANUAL) 6 % (19-48); MONOCYTES % (MANUAL) 2 % (3.4-9.0); NEUTROPHILS % (MANUAL) 85 % (40-74); PLATELET ESTIMATE ADEQUATE; PLATELET MORPHOLOGY COMMENT NORMAL
[2021-08-05 09:04] LABS: RBC MORPHOLOGY COMMENT ABNORMAL
[2021-08-05] MEDS: INSULIN GLARGINE 100 UNITS/ML VIAL SQ SCH ×2 (09:09→20:45)
[2021-08-05] MEDS: FUROSEMIDE INJ 10 MG/ML 2 ML VIAL IV SCH ×2 (09:25→18:16)
[2021-08-05] MEDS: DEXAMETHASONE SOD PHOS 10 MG/1 ML VIAL IV SCH (09:25)
[2021-08-05] MEDS: BARICITINIB 2 MG TABLET PO SCH (09:26)
[2021-08-05] MEDS: ASCORBIC ACID 500 MG TAB PO SCH ×2 (09:26→18:16)
[2021-08-05] MEDS: ZINC SULFATE 50 MG CAP PO SCH (09:26)
[2021-08-05 09:27] LABS: ABG HCO3 33 mmol/L (22-26); ABG PCO2 81 mmHg (35-45); ABG PH 7.22 (7.35-7.45); ABG PO2 44 mmHg (80-105); ABG TCO2 35
[2021-08-05] MEDS: ENOXAPARIN SOD INJ 40 MG/0.4 ML SYR SC SCH (18:16)
[2021-08-05] MEDS: CRESTOR 10MG PO SCH (20:46)
[2021-08-05] MEDS: ROCURONIUM 1250MG/NS 250 250 ML IV PRN (23:00)
[2021-08-06] VITALS (26 sets, daily range): BP systolic 90–141; BP diastolic 51–76
[2021-08-06] MEDS: DEXMEDETOMIDINE 100 ML IV PRN ×2 (00:13→18:55)
[2021-08-06] MEDS: PROPOFOL IV EMULSION 10MG/ML 100 ML IV SCH ×3 (02:22→18:55)
[2021-08-06] MEDS: FENTANYL 2000MCG/NS 250 250 ML IV SCH ×4 (02:22→23:17)
[2021-08-06] MEDS: PHENYLEPHRINE 10MG/ML VIAL 40 MG in DEXTROSE 5% 250ML 246 ML IV PRN (02:23)
[2021-08-06] MEDS: MIDAZOLAM HCL 5MG/ML 10ML VIAL 100 ML IV PRN ×4 (04:30→20:29)
[2021-08-06] MEDS: METRONIDAZOLE 500MG/NS 100ML 100 ML IV SCH (05:38)
[2021-08-06 05:58] LABS: BASOPHILS # (AUTO) 0.1 (0.0-0.1); BASOPHILS % 0.3 % (0.0-1.0); EOSINOPHILS % 0.1 % (0.0-6.0); HEMATOCRIT 38.9 % (38.2-49.6); HEMOGLOBIN 12.2 g/dL (14.0-18.0); LYMPHOCYTES # (AUTO) 0.9 (1.0-3.2); LYMPHOCYTES % 2.4 % (18.0-39.1); MEAN CORPUSCULAR HGB CONC 31.4 g/dL (31-35); MONOCYTES # (AUTO) 1.1 (0.2-0.8); NEUTROPHILS # (AUTO) 32.5 (2.1-6.9); NEUTROPHILS % 90.8 % (38.7-80.0); PLATELET COUNT 250 x10e3/uL (140-360); RED BLOOD COUNT 3.93 x10e6/uL (4.3-5.7); RED CELL DISTRIBUTION WIDTH 12.9 % (11.7-14.4)
[2021-08-06 06:33] LABS: ANION GAP 13.7 mmol/L (8-16); CALCIUM 7.4 mg/dL (8.4-10.2); CREATININE, SERUM 0.85 mg/dL (0.72-1.25); POTASSIUM 4.7 mmol/L (3.5-5.1)
[2021-08-06] MEDS: CEFEPIME 1 GM in SODIUM CHLORIDE 0.9% 50ML 50 ML IV SCH (06:37)
[2021-08-06] MEDS: INSULIN LISPRO 100 UNIT/1 ML 3ML VIAL SQ SCH ×4 (07:20→21:06)
[2021-08-06 07:52] LABS: ABG PH 7.29 (7.35-7.45)
[2021-08-06 07:53] LABS: ABG HCO3 34 mmol/L (22-26); ABG PCO2 72 mmHg (35-45); ABG PO2 40 mmHg (80-105); ABG TCO2 37
[2021-08-06] MEDS: DEXAMETHASONE SOD PHOS 10 MG/1 ML VIAL IV SCH (09:32)
[2021-08-06] MEDS: ZINC SULFATE 50 MG CAP PO SCH (09:35)
[2021-08-06] MEDS: BARICITINIB 2 MG TABLET PO SCH (09:35)
[2021-08-06] MEDS: FUROSEMIDE INJ 10 MG/ML 2 ML VIAL IV SCH ×2 (09:35→17:31)
[2021-08-06] MEDS: ASCORBIC ACID 500 MG TAB PO SCH ×2 (09:35→17:31)
[2021-08-06] MEDS: INSULIN GLARGINE 100 UNITS/ML VIAL SQ SCH ×2 (09:49→21:06)
[2021-08-06] MEDS: DOXYCYCLINE 100MG/NS 100ML 100 ML IV SCH ×2 (10:55→21:08)
[2021-08-06 11:21] LABS: LYMPHOCYTES % (MANUAL) 3 % (19-48); MONOCYTES % (MANUAL) 1 % (3.4-9.0); NEUTROPHILS % (MANUAL) 96 % (40-74)
[2021-08-06 11:25] LABS: RBC MORPHOLOGY COMMENT NORMAL
[2021-08-06 11:26] LABS: PLATELET ESTIMATE ADEQUATE; PLATELET MORPHOLOGY COMMENT FEW EDTA CLUMPING
[2021-08-06 13:09] LABS: ABG HCO3 34 mmol/L (22-26); ABG PCO2 62 mmHg (35-45); ABG PH 7.35 (7.35-7.45); ABG PO2 51 mmHg (80-105); ABG TCO2 36
[2021-08-06] MEDS: MEROPENEM 500 MG in SODIUM CHLORIDE 0.9% 50ML 50 ML IV SCH ×2 (14:27→21:06)
[2021-08-06] MEDS: ENOXAPARIN SOD INJ 40 MG/0.4 ML SYR SC SCH (17:31)
[2021-08-06] MEDS: ROCURONIUM 1250MG/NS 250 250 ML IV PRN (20:34)
[2021-08-06] MEDS: CRESTOR 10MG PO SCH (21:03)
[2021-08-07] VITALS (20 sets, daily range): BP systolic 67–135; BP diastolic 39–66
[2021-08-07] MEDS: PROPOFOL IV EMULSION 10MG/ML 100 ML IV SCH ×3 (01:14→11:44)
[2021-08-07] MEDS: MIDAZOLAM HCL 5MG/ML 10ML VIAL 100 ML IV PRN ×3 (01:45→11:10)
[2021-08-07] MEDS: FENTANYL 2000MCG/NS 250 250 ML IV SCH ×2 (05:18→11:43)
[2021-08-07] MEDS: MEROPENEM 500 MG in SODIUM CHLORIDE 0.9% 50ML 50 ML IV SCH ×2 (05:18→14:15)
[2021-08-07 06:19] LABS: BASOPHILS # (AUTO) 0.1 (0.0-0.1); BASOPHILS % 0.3 % (0.0-1.0); EOSINOPHILS % 0.1 % (0.0-6.0); HEMATOCRIT 32.2 % (38.2-49.6); HEMOGLOBIN 10.5 g/dL (14.0-18.0); LYMPHOCYTES # (AUTO) 0.6 (1.0-3.2); LYMPHOCYTES % 2.2 % (18.0-39.1); MEAN CORPUSCULAR HEMOGLOBIN 31.3 pg (28-32); MEAN CORPUSCULAR HGB CONC 32.6 g/dL (31-35); MEAN CORPUSCULAR VOLUME 95.8 fL (81-99); MONOCYTES # (AUTO) 0.9 (0.2-0.8); MONOCYTES % 3.1 % (4.4-11.3); NEUTROPHILS # (AUTO) 25.6 (2.1-6.9); NEUTROPHILS % 92.5 % (38.7-80.0); PLATELET COUNT 223 x10e3/uL (140-360); RED BLOOD COUNT 3.36 x10e6/uL (4.3-5.7); RED CELL DISTRIBUTION WIDTH 12.6 % (11.7-14.4)
[2021-08-07 06:41] LABS: ALBUMIN 1.6 g/dL (3.5-5.0); ALBUMIN/GLOBULIN RATIO 0.5 (0.8-2.0); ANION GAP 13.4 mmol/L (8-16); CALCIUM 7.6 mg/dL (8.4-10.2); CREATININE, SERUM 0.75 mg/dL (0.72-1.25); POTASSIUM 4.4 mmol/L (3.5-5.1)
[2021-08-07 06:59] LABS: CALCIUM IONIZED 1.1 mmol/L (1.09-1.30)
[2021-08-07 07:23] LABS: ANION GAP 14.4 mmol/L (8-16); CALCIUM 7.3 mg/dL (8.4-10.2); CREATININE, SERUM 0.73 mg/dL (0.72-1.25); MAGNESIUM 2.4 MG/DL (1.3-2.1); PHOSPHORUS 2.9 MG/DL (2.3-4.7); POTASSIUM 4.4 mmol/L (3.5-5.1)
[2021-08-07] MEDS: INSULIN LISPRO 100 UNIT/1 ML 3ML VIAL SQ SCH ×3 (07:55→16:40)
[2021-08-07] MEDS: FUROSEMIDE INJ 10 MG/ML 2 ML VIAL IV SCH (08:09)
[2021-08-07] MEDS: ASCORBIC ACID 500 MG TAB PO SCH ×2 (08:09→17:30)
[2021-08-07] MEDS: ZINC SULFATE 50 MG CAP PO SCH (08:09)
[2021-08-07] MEDS: INSULIN GLARGINE 100 UNITS/ML VIAL SQ SCH (08:19)
[2021-08-07] MEDS ORDERED: BALSAM PERU/CASTOR OIL 60 GM OINT...G. TP SCH (09:00)
[2021-08-07 11:04] LABS: LYMPHOCYTES % (MANUAL) 2 % (19-48); MONOCYTES % (MANUAL) 2 % (3.4-9.0); NEUTROPHILS % (MANUAL) 96 % (40-74); PLATELET ESTIMATE ADEQUATE; PLATELET MORPHOLOGY COMMENT NORMAL; RBC MORPHOLOGY COMMENT NORMAL
[2021-08-07] MEDS: DOXYCYCLINE 100MG/NS 100ML 100 ML IV SCH (11:09)
[2021-08-07] MEDS ORDERED: FUROSEMIDE INJ 10 MG/ML 2 ML VIAL IV SCH (17:00)
[2021-08-07] MEDS: ENOXAPARIN SOD INJ 40 MG/0.4 ML SYR SC SCH (17:30)
[2021-08-07] MEDS ORDERED: NOREPINEPHRINE 8 MG/D5W 250 ML 250 ML ONE (19:07)
[2021-08-07] MEDS ORDERED: AMIODARONE 900MG 500 ML IV ONE (19:17)
[2021-08-07] MEDS ORDERED: EPINEPHRINE HCL SYRINGE ONE ×3 (19:24→19:38)
[2021-08-07] MEDS ORDERED: DEXTROSE 5% 250ML 250 ML IV ONE (19:25)
[2021-08-07] MEDS ORDERED: CALCIUM CHLORIDE 10% 1.36 MEQ/ML 10ML SYR IV ONE (19:35)
[2021-08-07] MEDS ORDERED: SODIUM BICARBONATE 8.4% INJ 50 ML SYR ONE (19:35)
[2021-08-08] MEDS ORDERED: LACTULOSE SYRUP 20 GM/30 ML UDC PO SCH (09:00)
== END 2021-08-07 19:41 | disposition expired | DRG 870 ==
LOC: ER 12:04 → ERHOLD 12:51 → ICU 14:00 → UNDODISIN 08-08 00:49
PROVIDERS: ADMIT Internal Medicine; ATTEND Internal Medicine
PROC: 02HV33Z Insertion of Infusion Device into Superior Vena Cava, Percutaneous Approach (ICD-10-PCS; 2021-07-27)
PROC: 5A1955Z Respiratory Ventilation, Greater than 96 Consecutive Hours (ICD-10-PCS; principal; 2021-07-29)
PROC: 0BH18EZ Insertion of Endotracheal Airway into Trachea, Via Natural or Artificial Opening Endoscopic (ICD-10-PCS; 2021-07-29)
PROC: 8E0ZXY6 Isolation (ICD-10-PCS; 2021-07-29)
PROC: XW043E5 Introduction of Remdesivir Anti-infective into Central Vein, Percutaneous Approach, New Technology Group 5 (ICD-10-PCS; 2021-07-29)
PROC: 5A12012 Performance of Cardiac Output, Single, Manual (ICD-10-PCS; 2021-08-07)
DX: A41.89 Other specified sepsis (principal); U07.1 COVID-19; J12.82 Pneumonia due to coronavirus disease 2019; R65.21 Severe sepsis with septic shock; J80 Acute respiratory distress syndrome; J69.0 Pneumonitis due to inhalation of food and vomit; N17.9 Acute kidney failure, unspecified; E87.0 Hyperosmolality and hypernatremia; E87.4 Mixed disorder of acid-base balance; I48.0 Paroxysmal atrial fibrillation; I46.9 Cardiac arrest, cause unspecified; E66.9 Obesity, unspecified; Z68.35 Body mass index [BMI] 35.0-35.9, adult; E78.5 Hyperlipidemia, unspecified; E83.41 Hypermagnesemia; E83.39 Other disorders of phosphorus metabolism; E83.51 Hypocalcemia; I13.10 Hypertensive heart and chronic kidney disease without heart failure, with stage 1 through stage 4 chronic kidney disease, or unspecified chronic kidney disease; N18.9 Chronic kidney disease, unspecified; E11.22 Type 2 diabetes mellitus with diabetic chronic kidney disease
CPT/HCPCS: 31500; 36415; 36569; 36600; 51700; 71045; 74018; 76770; 80048; 80053; 80202; 81001; 82570; 82805; 82948; 83605; 83735; 84100; 84132; 84156; 84300; 85025; 85379; 85610; 85730; 86141; 87040; 87070; 87205; 92950; 93005; 93306; 94002; 94003; 94660; 94799; 96372; 99251; 99284; J0171; J0456; J0610; J0692; J0696; J1100; J1160; J1650; J1815; J1817; J1940; J2060; J2185; J2310; J2370; J2543; J3370; J3480; J7030; J7050; J7070; P9047; U0002